=== PATIENT | female | born 1960 | race African-American/Black ===

== ENCOUNTER 2019-06-28 08:31 | Emergency (ER) | payer MEDICAID, OTHER ==
[~2019-06-28] VITALS: Ht 154.9 cm; Wt 76.0 kg
[2019-06-28] MEDS ORDERED: SODIUM CHLORIDE 0.9% 1,000 ML IV ONE (08:51)
[2019-06-28 09:29] LABS: CLARITY URINE CLEAR (CLEAR); COLOR URINE YELLOW (YELLOW); KETONES URINE NEGATIVE (NEGATIVE); LEUKOCYTE ESTERASE URINE TRACE (NEGATIVE); NITRITE URINE NEGATIVE (NEGATIVE); OCCULT BLOOD URINE NEGATIVE (NEGATIVE); PH URINE 6.5 (4.5-8.0); PROTEIN URINE NEGATIVE (NEGATIVE); SPECIFIC GRAVITY URINE 1.004 (1.005-1.030); UROBILINOGEN URINE 0.2 E.U./dL (0.2-1.0)
[2019-06-28 09:39] LABS: BASOPHILS % 1.6 % (0.0-2.0); EOSINOPHILS % 6.3 % (0.0-5.0); HEMATOCRIT. 40.8 % (36.0-48.0); HEMOGLOBIN. 13.9 g/dL (12.0-16.0); LYMPHOCYTES % 33.4 % (20.0-50.0); MEAN CORPUSCULAR HEMOGLOBIN 31.4 pg (28.0-32.0); MEAN CORPUSCULAR VOLUME 92.4 fL (81.0-99.0); MEAN PLATELET VOLUME 9.3 fl (7.4-10.4); NEUTROPHILS % 46.7 % (40.0-76.0); PLATELET 222 x1000/uL (130-400); RED BLOOD CELL COUNT 4.42 mill/uL (4.2-5.4); RED CELL DISTRIBUTION WIDTH 13.8 % (11.6-14.6)
[2019-06-28 09:43] LABS: CHLORIDE 102 mEq/L (98-107)
[2019-06-28 09:47] LABS: ETHANOL BLOOD < 10 mg/dL
[2019-06-28 09:49] LABS: METHADONE URINE SCREEN NEGATIVE (NEGATIVE)
[2019-06-28 09:50] LABS: *AMPHETAMINES SCREEN URINE NEGATIVE (NEGATIVE); *BARBITURATES SCREEN URINE NEGATIVE (NEGATIVE); *BENZODIAZEPINES SCREEN URINE NEGATIVE (NEGATIVE); *COCAINE SCREEN URINE NEGATIVE (NEGATIVE); CANNABINOID URINE SCREEN NEGATIVE (NEGATIVE); OPIATES URINE SCREEN NEGATIVE (NEGATIVE); PHENCYCLIDINE URINE SCREEN NEGATIVE (NEGATIVE)
[2019-06-28 10:45] VITALS: BP 134/89
== END 2019-06-28 10:57 | disposition home or self-care (01) ==
LOC: ER 08:31
DX: R00.2 Palpitations (principal); R00.0 Tachycardia, unspecified; I10 Essential (primary) hypertension; Z98.890 Other specified postprocedural states
CPT/HCPCS: 36415; 71045; 80053; 80305; 80320; 81003; 84484; 85025; 93005; 99285; J7030; G0480

== ENCOUNTER 2019-09-29 11:20 | Emergency (ER) | payer MEDICAID ==
[~2019-09-29] VITALS: Ht 162.6 cm; Wt 72.0 kg
[2019-09-29 11:26] VITALS: BP 142/80
[2019-09-29] MEDS ORDERED: IBUPROFEN 600MG TABLET PO ONE (13:15)
== END 2019-09-29 15:10 | disposition home or self-care (01) ==
LOC: ER 11:20
DX: M25.562 Pain in left knee (principal); I10 Essential (primary) hypertension
CPT/HCPCS: 73562; 99283

== ENCOUNTER 2020-05-16 11:35 | Emergency (ER) | payer MEDICAID ==
[~2020-05-16] VITALS: Ht 165.1 cm; Wt 73.0 kg
[2020-05-16 11:40] VITALS: BP 142/79
[2020-05-16] MEDS ORDERED: METH-653 MT (12:16)
== END 2020-05-16 12:32 | disposition home or self-care (01) ==
LOC: ER 11:35
DX: I10 Essential (primary) hypertension (principal); Z13.9 Encounter for screening, unspecified; Z76.0 Encounter for issue of repeat prescription; Z98.890 Other specified postprocedural states
CPT/HCPCS: 93005; 99283

== ENCOUNTER 2020-10-12 12:22 | Emergency (ER) | payer MEDICAID ==
[~2020-10-12] VITALS: Ht 162.6 cm; Wt 78.0 kg
[~2020-10-12 12:22] MED LIST: METH-653 MT
[2020-10-12] MEDS ORDERED: SODIUM CHLORIDE 0.9% 1,000 ML IV ONE (16:15)
[2020-10-12 16:41] LABS: EOSINOPHILS % 5.7 % (0.0-5.0); HEMATOCRIT. 37.8 % (36.0-48.0); HEMOGLOBIN. 12.9 g/dL (12.0-16.0); LYMPHOCYTES % 42.1 % (20.0-50.0); MEAN CORPUSCULAR HEMOGLOBIN 31.6 pg (28.0-32.0); MEAN PLATELET VOLUME 9.2 fl (7.4-10.4); MONOCYTES % 10.3 % (2.0-8.0); NEUTROPHILS % 40.9 % (40.0-76.0); PLATELET 209 x1000/uL (130-400); RED BLOOD CELL COUNT 4.07 mill/uL (4.2-5.4); RED CELL DISTRIBUTION WIDTH 14.5 % (11.6-14.6)
[2020-10-12 16:45] LABS: CHLORIDE 110 mEq/L (98-107)
[2020-10-12] MEDS ORDERED: DIPHENHYDRAMINE 50MG/ML VIAL IV ONE (18:45)
[2020-10-12] MEDS ORDERED: METOCLOPRAMIDE HCL 10MG/2ML VIAL IV ONE (18:45)
[2020-10-12] MEDS ORDERED: KETOROLAC 15MG/ML VIAL IV ONE (18:45)
[2020-10-12] MEDS ORDERED: ACET-2708 MT (18:46)
[2020-10-12 19:56] VITALS: BP 145/72
== END 2020-10-12 20:42 | disposition home or self-care (01) ==
LOC: ER 12:22
DX: R51.9 Headache, unspecified (principal); I10 Essential (primary) hypertension; Z98.890 Other specified postprocedural states
CPT/HCPCS: 36415; 70450; 72125; 80048; 85025; 96374; 96375; 99285; J1200; J1885; J2765; J7030

== ENCOUNTER 2021-02-21 21:04 | Emergency (ER) | payer MEDICAID, OTHER ==
[~2021-02-21] VITALS: Ht 162.6 cm; Wt 74.0 kg
[~2021-02-21 21:04] MED LIST changes: +ACET-2708 MT
[2021-02-22 03:07] LABS: BASOPHILS % 1.2 % (0.0-2.0); EOSINOPHILS % 4.7 % (0.0-5.0); HEMATOCRIT. 41.4 % (36.0-48.0); HEMOGLOBIN. 13.8 g/dL (12.0-16.0); LYMPHOCYTES % 34.1 % (20.0-50.0); MEAN CORPUSCULAR HEMOGLOBIN 30.7 pg (28.0-32.0); MEAN CORPUSCULAR VOLUME 91.8 fL (81.0-99.0); MEAN PLATELET VOLUME 9.4 fl (7.4-10.4); MONOCYTES % 10.2 % (2.0-8.0); NEUTROPHILS % 49.8 % (40.0-76.0); PLATELET 229 x1000/uL (130-400); RED BLOOD CELL COUNT 4.51 mill/uL (4.2-5.4)
[2021-02-22 03:14] LABS: CLARITY URINE CLOUDY (CLEAR); COLOR URINE YELLOW (YELLOW); KETONES URINE NEGATIVE (NEGATIVE); LEUKOCYTE ESTERASE URINE NEGATIVE (NEGATIVE); NITRITE URINE NEGATIVE (NEGATIVE); OCCULT BLOOD URINE NEGATIVE (NEGATIVE); PROTEIN URINE NEGATIVE (NEGATIVE); SPECIFIC GRAVITY URINE 1.017 (1.005-1.030)
[2021-02-22] MEDS ORDERED: KETOROLAC 15MG/ML VIAL IM ONE (03:45)
[2021-02-22 03:50] LABS: CHLORIDE 108 mEq/L (98-107)
[2021-02-22 04:12] VITALS: BP 160/85
== END 2021-02-22 04:14 | disposition home or self-care (01) ==
LOC: ER 21:04
DX: N20.0 Calculus of kidney (principal); I10 Essential (primary) hypertension; Z98.890 Other specified postprocedural states
CPT/HCPCS: 36415; 74176; 80053; 81003; 83690; 85025; 96372; 99284; J1885

== ENCOUNTER 2021-08-18 19:37 | Emergency (ER) | payer MEDICAID, OTHER ==
[~2021-08-18] VITALS: Ht 162.6 cm; Wt 74.9 kg
[2021-08-19 00:16] VITALS: BP 134/76
== END 2021-08-19 | disposition home or self-care (01) ==
LOC: ER 19:37
DX: M79.662 Pain in left lower leg (principal); I10 Essential (primary) hypertension; Z98.890 Other specified postprocedural states
CPT/HCPCS: 99281

== ENCOUNTER 2022-09-06 11:29 | Emergency (ER) | payer MEDICAID ==
[~2022-09-06] VITALS: Ht 165.1 cm; Wt 72.0 kg
[2022-09-06 11:36] VITALS: TEMP 98; O2SAT 99
[2022-09-06] MEDS ORDERED: KETOROLAC 15MG/ML VIAL IM ONE (13:15)
[2022-09-06] MEDS ORDERED: CYCLOBENZAPRINE 10MG TABLET PO ONE (13:15)
[2022-09-06] MEDS ORDERED: HYDROCODONE/ACETAMINOPHEN 5/325MG TABLET PO ONE (13:15)
[2022-09-06] MEDS ORDERED: NAPR-681 MT (14:04)
[2022-09-06] MEDS ORDERED: METH-774 MT (14:04)
[2022-09-06] MEDS ORDERED: BO1 TP (14:12)
[2022-09-06 14:29] VITALS: BP 172/63; PULSE 50; RESP 14
== END 2022-09-06 14:30 | disposition home or self-care (01) ==
LOC: ER 11:29
DX: G89.29 Other chronic pain (principal); M54.50 Low back pain, unspecified; I10 Essential (primary) hypertension; Z98.890 Other specified postprocedural states; Z79.899 Other long term (current) drug therapy
CPT/HCPCS: 96372; 99283; J1885; Z7610 ×3